=== PATIENT | female | born 1980 | race Caucasian/White ===

== ENCOUNTER → 2020-03-18 | Outpatient (CLI) | payer BC ==
[~2020-03-18] MED LIST: FERR-47 PO; Hydrocodone Bit/Acetaminophen PO; IBP800T PO; PRM25T PO
--- NOTE | 2020-03-18 17:12 | Diagnostic Imaging Report ---
Exam: MRI foot without contrast. Date: March 18, 2020. Indication: 40-year-old female, evaluation for fifth metatarsal fracture. Comparison: None. Technique: Multiple noncontrast MRI sequences of the right foot were obtained. Findings: There is no acute fracture. There is no bone contusion, stress reaction, or other bone marrow signal abnormality. The visualized portions of the posterior flexor tendons, anterior extensor tendons, and peroneal tendons are intact. Lisfranc ligament proper is intact. The joint spaces are well preserved. There is no joint effusion. Additional soft tissue evaluation is unremarkable. Impression: 1. Unremarkable MRI of the right foot. Dictated by: Dictated on workstation # [id number]
== END ==
LOC: RAD 14:21
PROVIDERS: ATTEND Orthopaedic Surgery
DX: S92.354A Nondisplaced fracture of fifth metatarsal bone, right foot, initial encounter for closed fracture (principal); X58.XXXA Exposure to other specified factors, initial encounter

== ENCOUNTER → 2020-05-02 | Outpatient (CLI) | payer BC ==
--- NOTE | 2020-05-02 10:10 | Diagnostic Imaging Report ---
PROCEDURE: MRI lumbar spine. TECHNIQUE: Multiplanar, multisequence MRI of the lumbar spine was performed without contrast. INDICATION: Right lower extremity radiculopathy Lumbar spinal curvature and alignment are unremarkable. Vertebral body heights and disc spaces are maintained. There is no evidence of focal disc protrusion. There is mild annular bulging of the L3-L4 disc eccentric toward the right. This may result in minimal impingement upon the right neural foramen. There is no marrow signal abnormality identified. Conus medullaris has a normal appearance at the L1 level. IMPRESSION: Slight rightward bulging of the L3-L4 disc resulting in minimal impingement upon the right neural foramen. Otherwise no spinal stenosis or focal protrusion is identified. Dictated by: Dictated on workstation # [id number]
== END ==
LOC: RAD 08:44
PROVIDERS: ATTEND Orthopaedic Surgery
DX: M54.16 Radiculopathy, lumbar region (principal)
CPT/HCPCS: 72148

== ENCOUNTER 2020-05-22 14:14 | Outpatient (RCR) | payer BC | END 2020-06-24 14:43 | disposition home or self-care (01) | PROVIDERS: ATTEND Orthopaedic Surgery | DX: M54.15 Radiculopathy, thoracolumbar region (principal) ==

== ENCOUNTER → 2020-11-27 | Outpatient (CLI) | payer BC ==
--- NOTE | 2020-11-27 10:45 | Diagnostic Imaging Report ---
INDICATION: Routine screening. 2-D and 3-D bilateral screening mammography was performed with CAD. Both breasts are heterogeneously dense, limiting the sensitivity of mammography. No mass or malignant appearing microcalcifications are seen. Axillae are unremarkable. IMPRESSION: BI-RADS Category 2 No mammographic features suspicious for malignancy are identified. ACR BI-RADS Category 2: Benign findings. Result letter will be mailed to the patient. Note: At least 10% of breast cancer is not imaged by mammography. Dictated by: Dictated on workstation # [id number]
== END ==
LOC: RAD 09:28
PROVIDERS: ATTEND Obstetrics & Gynecology
DX: Z12.31 Encounter for screening mammogram for malignant neoplasm of breast (principal)
CPT/HCPCS: 77063; 77067

== ENCOUNTER → 2023-07-16 | Outpatient (CLI) | payer BC ==
--- NOTE | 2023-07-16 22:02 | Diagnostic Imaging Report ---
INDICATION: Routine screening. COMPARISON: Prior mammogram from 11/27/2020. EXAMINATION: 2D and 3D bilateral screening mammography was performed with CAD. The current study was also evaluated with a Computer Aided Detection (CAD) system. FINDINGS: Both breasts are heterogeneously dense, limiting the sensitivity of mammography. The parenchymal pattern is stable. No mass or malignant-appearing microcalcifications are seen. Axillae are unremarkable. IMPRESSION: No mammographic features suspicious for malignancy are identified. ACR BI-RADS Category 1: Negative. Result letter will be mailed to the patient. Note: At least 10% of breast cancer is not imaged by mammography. Dictated by: Dictated on workstation # [id number]
== END ==
LOC: RAD 15:30
PROVIDERS: ATTEND Obstetrics & Gynecology
DX: Z12.31 Encounter for screening mammogram for malignant neoplasm of breast (principal)
CPT/HCPCS: 77063; 77067